=== PATIENT | female | born 1990 | race Caucasian/White ===

== ENCOUNTER 2021-07-05 10:06 | Outpatient (CLI) | payer OTHER | END 2021-07-05 10:12 | disposition home or self-care (01) | LOC: RX STUDY 10:06 | DX: N94.6 Dysmenorrhea, unspecified (principal) ==

== ENCOUNTER 2021-08-06 10:48 | Outpatient (CLI) | payer OTHER | END 2021-08-06 11:05 | disposition home or self-care (01) | LOC: RAD 10:48 | DX: N94.6 Dysmenorrhea, unspecified (principal) ==